=== PATIENT | female | born 1930 | race Two or more races ===

== ENCOUNTER 2017-04-08 10:45 | Emergency (ER) | payer MEDICARE, MEDICAID ==
[~2017-04-08] VITALS: Ht 152.4 cm; Wt 49.9 kg
--- NOTE | 2017-04-08 13:08 | Emergency Room Report ---
History of Present Illness General Chief Complaint: Malfunctioning Gastric Tube Source: EMS Present Illness HPI Patient is from nursing facility with request of feeding tube placement Patient's previous feeding tube had been dislodged Patient presents without any knowledge of previous size It is unclear the exact time the feeding tube was dislodged patient herself has significant dementia History of present illness is limited After contacting nursing facility, it was reported that the feeding tube had been disposed and facility is unaware of the size Allergies: Coded Allergies: No Known Allergies (Unverified , 04/08/17) Patient History Limited by: medical condition Past Medical History: see triage record Pertinent Family History: unable to obtain Reviewed Nursing Documentation: PMH: Agreed, PSxH: Agreed Nursing Documentation-PMH Past Medical History: No History, Except For Hx Hypertension: Yes Hx Diabetes: Yes Hx Neurological Problems: Yes - Alzheimers dementia bipolar Hx Seizures: Yes Review of Systems All Other Systems: limited - Other than the ones mentioned in the history of present illness all others are reviewed however they do stay limited due to the patient's mental status Physical Exam Vital Signs Date Time Temp Pulse Resp B/P Pulse Ox O2 Delivery O2 Flow Rate FiO2 04/08/17 10:47 97.5 82 20 157/52 93 Room Air Sp02 EP Interpretation: reviewed, normal General Appearance: no apparent distress Head: normocephalic, atraumatic Eyes: bilateral eye PERRL ENT: normal pharynx, no angioedema Neck: supple Respiratory: lungs clear, normal breath sounds Cardiovascular #1: regular rate, rhythm, no edema, no gallop Gastrointestinal: soft, other - Stoma is patent no obvious erythema, Musculoskeletal: other - Patient does not follow commands however moves both upper extremities without focal deficit Neurologic: responsive Skin: no rash Lymphatic: no adenopathy Medical Decision Making Diagnostic Impression: Primary Impression: Malfunction of gastrostomy tube ER Course After cleansing the area 18 Nepali feeding tube was placed through the stoma without any resistance balloon was inflated 20 mL Area was taped down and patient tolerated procedure well KUB gastrographin confirmed locations and patient stable for transfer back to nursing facility Other X-Ray Diagnostic Results Other X-Ray Diagnostic Results : EP Interpretation: Yes Findings: no fractures, no dislocation, no soft tissue swelling, other - no extravasation Number of Views: 1 - KUB Last Vital Signs Date Time Temp Pulse Resp B/P Pulse Ox O2 Delivery O2 Flow Rate FiO2 04/08/17 10:47 97.5 82 20 157/52 93 Room Air Status: improved Disposition: XFER SNF Condition: Improved Referrals: ANNETTE GARCIA (PCP) Patient Instructions: Gastrostomy Tube Home Guide, Adult Additional Instructions: Patient is provided with the discharge instructions notified to follow up with primary doctor in the next 2-3 days otherwise return to the er with any worsening symptoms. Please note that this report is being documented using SUPR technology. This can lead to erroneous entry secondary to incorrect interpretation by the dictating instrument. BARBRA SCHULTZ D.O. Apr 08, 2017 13:08
[2017-04-08 13:49] VITALS: BP 157/86
--- NOTE | 2017-04-08 14:06 | Diagnostic Imaging Report ---
Indication: Abdominal pain Comparison: None Single view of the abdomen obtained Gastrostomy noted within the stomach. Contrast demonstrated in the stomach and duodenum. Bones are osteopenic. Impression: Gastrostomy good position. No leak
== END 2017-04-08 13:49 ==
LOC: EDBD 10:45 → EMR 11:30 → EDBD 11:30 → EMR 13:49
DX: Z43.1 Encounter for attention to gastrostomy (principal); I10 Essential (primary) hypertension; E11.9 Type 2 diabetes mellitus without complications; G30.9 Alzheimer's disease, unspecified; F02.80 Dementia in other diseases classified elsewhere, unspecified severity, without behavioral disturbance, psychotic disturbance, mood disturbance, and anxiety
CPT/HCPCS: 43760; 74000; 99284; Q9963